=== PATIENT | female | born 1980 | race Caucasian/White ===

== ENCOUNTER 2018-02-12 06:02 | Emergency (ER) | payer OTHER ==
[~2018-02-12] VITALS: Ht 165.1 cm; Wt 122.5 kg
[~2018-02-12 06:02] MED LIST: AUGMENTIN 875875 MG PO; COLACE100 MG PO; HYDROCODON-ACE1 EAC2 PO; IBUPROFEN800 M1 PO; IBUPROFEN800 MG PO; NATURAL IRON65 MG PO; PERCOCET 325 MG1 TA2 PO; PRENATAL1 TA2 PO
--- NOTE | 2018-02-12 06:38 | ED GI/GU/ABDOMINAL COMPLAINT ---
History of Present Illness General Chief Complaint: Abdominal Pain/Flank Pain Stated Complaint: "IM HAVING A GALLBLADDER ATTACK" Source: patient Exam Limitations: no limitations Vital Signs & Intake/Output Vital Signs & Intake/Output Vital Signs Date Time Temp Pulse Resp B/P B/P Pulse O2 O2 Flow FiO2 Mean Ox Delivery Rate 02/12 0834 96.0 42 20 167/75 99 Room Air Room Air 02/12 0623 98 Room Air 02/12 0614 97.6 56 18 187/90 98 Room Air Allergies Coded Allergies: pseudoephedrine (Intermediate, RASH 02/12/18) Reconcile Medications No Known Home Medications Triage Note: TRIAGE: PATIENT TO ER FROM HOME REPORTING "I HAVE GALLSTONES, AT MY DOCTORS ON SATURDAY, SHARP PAIN TODAY APPROX 0300, INCREASED AND CONSTANT SINCE 0500." +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 LAST MENSES FIRST WEEK IN JANUARY PER PATIENT. Triage Nurses Notes Reviewed? yes ? N Is pt currently ? No HPI: Patient presents for evaluation of a severe constant back and upper abdominal pain consistent with a gallbladder attack. Patient states that she was evaluated by Dr. Silva, general surgery, on Saturday was tentatively scheduled for cholecystectomy on March 10. She states that beginning about 11 PM last night she had an onset of a constant sharp back pain. It worsened at about 3 AM and worsened even further at about 5 AM. She took Tylenol initially without relief and then tried a hydrocodone tablet that she had left over from a prior section at about 3:30 AM. She has had no improvement in pain. She denies any associated fever, cold symptoms, diarrhea or dysuria. She has felt nauseous and did vomit once. (January LARSEN,Donovan Montoya) Past History Travel History Traveled to [place] past 21 day No Medical History Any Pertinent Medical History? 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 No (January LARSEN,Donovan Montoya) Review of Systems Review of Systems Constitutional: Reports: no symptoms. EENTM: Reports: no symptoms. Respiratory: Reports: no symptoms. Cardiovascular: Reports: no symptoms. GI: Reports: see HPI. Genitourinary: Reports: no symptoms. Musculoskeletal: Reports: no symptoms. Skin: Reports: no symptoms. Neurological/Psychological: Reports: no symptoms. Hematologic/Endocrine: Reports: no symptoms. Immunologic/Allergic: Reports: no symptoms. All Other Systems: Reviewed and Negative (January LARSEN,Donovan Montoya) Physical Exam Physical Exam Gastrointestinal: SEE BELOW Comments: Gen.: Well-nourished, well-developed, no acute respiratory distress. Uncomfortable but nontoxic-appearing. Head: Normocephalic, atraumatic. Eyes: Normal inspection bilaterally Ears: Normal inspection bilaterally Nose: Normal inspection Throat/mouth : Moist mucosa Neck: Supple, full range of motion, no goiter Heart: Regular rate and rhythm, no murmurs rubs or gallops Lungs: Clear to auscultation bilaterally with normal air entry Chest: Nontender Back: Normal range of motion Abdomen: Soft, right upper quadrant tenderness without rebound or guarding, nondistended, normal bowel sounds Extremities: Normal range of motion grossly, equal radial pulses, no cyanosis clubbing or edema Neurologic: Cranial nerves grossly intact, speech is clear Skin: warm and dry Psychiatric: Calm, cooperative, no apparent delusions or hallucinations Core Measures ACS in differential dx? No Sepsis Present: No Sepsis Focused Exam Completed? No (January LARSEN,Donovan Montoya) Progress Differential Diagnosis: biliary colic, PUD/GERD, CHOLECYSTITIS Plan of Care: Orders Procedure Date/time Status URINALYSIS 02/12 0638 Active LIPASE 02/12 0638 Complete HUMAN BETA HCG SCREEN 02/12 0638 Complete COMPREHENSIVE METABOLIC PANEL 02/12 0638 Complete CBC WITHOUT DIFFERENTIAL 02/12 0638 Complete Current Medications Sig/Jaskaran Start time Last Medication Dose Stop Time Status Admin Ampicillin Sodium/ 3,000 MG ONCE ONE 02/12 0915 AC Sulbactam Sodium 02/12 0944 (Unasyn) Sodium Chloride 100 ML (Normal Saline 0.9%) Sodium Chloride 1,000 ML ONCE ONE 02/12 0645 AC 02/12 (Normal Saline 0.9%) 02/12 1324 0715 Laboratory Tests 02/12/18 0700: Anion Gap 12, Estimated GFR > 60, BUN/Creatinine Ratio 20.0, Glucose 116 H, Calcium 10.0, Total Bilirubin 0.8, AST 14, ALT 34, Alkaline Phosphatase 71, Total Protein 7.2, Albumin 4.0, Globulin 3.2, Albumin/Globulin Ratio 1.3, Lipase 49, Total Beta HCG NEGATIVE, CBC w Diff NO MAN DIFF REQ, RBC 5.08, MCV 87.0, MCH 29.0, MCHC 33.4, RDW 14.4, MPV 9.7, Gran % 77.1 H, Lymphocytes % 16.8 L, Monocytes % 4.6, Eosinophils % 1.1, Basophils % 0.4, Absolute Granulocytes 10.2 H, Absolute Lymphocytes 2.2, Absolute Monocytes 0.6, Absolute Eosinophils 0.1, Absolute Basophils 0.1 Initial ED EKG: none Comments: 02/12/2018 7:42:55 AM 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 (January LARSEN,Donovan Montoya) Departure Departure Disposition: STILL A PATIENT Condition: Stable Clinical Impression Primary Impression: Biliary colic Referrals: Michelle LARSEN,Coral (PCP/Family) Departure Forms: Customer Survey General Discharge Information Prescriptions: Current Visit Scripts No Known Home Medications (January LARSEN,Donovan Montoya) OR/GI Note Spoke With: Nat LARSEN,Pablo Marroquin ED Treatment Decision: FLORA SILVEIRA requires urgent operative management or an emergent procedure that cannot be performed in the Emergency Room setting. Transport To: [facility] (Yair LARSEN,Gonzalez Friedman)
[2018-02-12 07:42] LABS: ABSOLUTE BASOPHIL COUNT 0.1 /CUMM (0.0-0.2); ABSOLUTE EOSINOPHIL COUNT 0.1 /CUMM (0.0-0.7); ABSOLUTE GRANULOCYTE CT 10.2 /CUMM (1.4-6.5); ABSOLUTE LYMPH COUNT 2.2 /CUMM (1.2-3.4); ABSOLUTE MONOCYTE COUNT 0.6 /CUMM (0.10-0.60); BASOPHIL % 0.4 % (0.0-2.0); EOSINOPHIL % 1.1 % (0-5); GRANULOCYTE % 77.1 % (42.2-75.2); HEMATOCRIT 44.2 % (37-47); MEAN CORPUSCULAR HGB CONC 33.4 G/DL (33.0-37.0); MEAN PLATELET VOLUME 9.7 FL (7.4-10.4); PLATELET COUNT 359 /CUMM (130-400); RBC DISTRIBUTION WIDTH 14.4 % (11.5-14.5); RED BLOOD CELL CT 5.08 /CUMM (4.20-5.40); WHITE BLOOD CELL COUNT 13.3 /CUMM (4.8-10.8)
--- NOTE | 2018-02-12 09:02 | ULTRASOUND REPORT ---
US ABDOMEN LIMITED CLINICAL INFORMATION: Cholecystitis. History of gallstones with right upper quadrant abdominal pain. COMPARISON: Abdominal ultrasound 01/27/2018 TECHNIQUE: Real-time imaging of the right upper quadrant abdominal viscera. FINDINGS: PANCREAS: Not visualized LIVER: Normal. The liver demonstrates normal size, contour and echogenicity. No focal lesion or intrahepatic biliary duct dilatation. GALLBLADDER: Gallstones are again noted with an impacted gallstone at the gallbladder neck. Gallbladder wall is thickened, measuring 0.6 cm. No pericholecystic fluid is visualized. The patient is tender within the right upper quadrant. COMMON BILE DUCT: Normal in caliber measuring 0.4 cm in diameter. RIGHT KIDNEY: Normal. No hydronephrosis. No renal calculi or focal parenchymal lesions. The kidney measures 11.1 cm in maximum dimension. FREE FLUID: None. IMPRESSION: Redemonstrated cholelithiasis with similar focal gallbladder wall thickening and focal gallbladder wall edema without definite pericholecystic fluid. A HIDA scan could be obtained if there is high clinical suspicion for acute cholecystitis in this setting.
--- NOTE | 2018-02-12 10:24 | History & Physical Pre-Op ---
General Information and HPI MD Statement: I have seen and personally examined FLORA SILVEIRA and documented this H&P. The patient is a 37 year old F who presented with a patient stated chief complaint of [abdominal pain]. History of Present Illness: Patient presented for evaluation of abdominal pain in my office two days ago. Noted onset of epigastric and RUQ abdominal pain with radiation to back. It began many months ago, shortly after the of her second child. Since then the pain became more frequent, especially in the past few weeks. It was worsened after fatty meals and associate with nausea. Now pain free on low fat diet. Ultrasound shows gallstones with mild wall thickening. I recommended she undergo laparoscopic cholecystectomy. 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 Last night she had severe recurrent attack that brought her to the emergency room. Her pain is unrelenting. 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 She reports no fatigue, no fever, no night sweats, no significant weight gain, no significant weight loss, and no exercise intolerance. She reports no abnormal moles, no jaundice, no hives, no eczema, and no rashes. She reports no dry eyes, no irritation, no vision change, and no discharge. She reports no hearing loss, no ear pain, no sneezing, no frequent nosebleeds, no nose/sinus problems, no bleeding gums, no snoring, no dry mouth, no mouth ulcers, no oral abnormalities, no teeth problems, no headaches, and no sore throat. She reports no swollen glands and no neck stiffness. She reports no cough, no wheezing, no shortness of breath, and no coughing up blood. She reports no chest pain, no arm pain on exertion, no shortness of breath when walking, no shortness of breath when lying down, no palpitations, and no leg swelling. She reports no incontinence, no difficulty urinating, no hematuria, and no increased frequency. She reports no muscle aches, no muscle weakness, no arthralgias/joint pain, and no back pain. Exam & Diagnostic Data Last 24 Hrs of Vital Signs/I&O Vital Signs Date Time Temp Pulse Resp B/P B/P Pulse O2 O2 Flow FiO2 Mean Ox Delivery Rate 02/12 0834 96.0 42 20 167/75 99 Room Air Room Air 02/12 0623 98 Room Air 02/12 0614 97.6 56 18 187/90 98 Room Air Intake & Output 02/12 1600 02/12 0800 02/12 0000 Intake Total Output Total Balance Patient 270 lb Weight Weight Reported by Patient Measurement Method Physical Exam: Patient is a 37-year-old female. Constitutional: General Appearance: healthy-appearing and obese. Level of Distress: no acute distress. Ambulation: ambulating normally. Head: Head: normocephalic and atraumatic. Cardiovascular: Heart Auscultation: normal S1 and S2; no murmurs, rubs, or gallops; and regular rate and rhythm. Lungs: Respiratory effort: no dyspnea. Percussion: no dullness, flatness, or hyperresonance. Auscultation: no wheezing, rales/crackles, or rhonchi and breath sounds normal, good air movement, and clear to auscultation. Back: Thoracolumbar Appearance: normal curvature. Abdomen: Inspection and Palpation: Tender right upper quadrant with guarding. No CVA tenderness and soft and non-distended. Bowel Sounds: normal . Hernia: none palpable. Skin: Inspection and palpation: no rash, lesions, ulcer, induration, nodules, jaundice, or abnormal nevi and good turgor. Musculoskeletal:: Extremities: no cyanosis, edema, varicosities, or palpable cord. Motor Strength and Tone: normal tone and motor strength. Joints, Bones, and Muscles: no contractures, malalignment, tenderness, or bony abnormalities and normal movement of all extremities. Last 24 Hrs of Labs/Perfecto: Laboratory Tests 02/12/18 0700: Anion Gap 12, Estimated GFR > 60, BUN/Creatinine Ratio 20.0, Glucose 116 H, Calcium 10.0, Total Bilirubin 0.8, AST 14, ALT 34, Alkaline Phosphatase 71, Total Protein 7.2, Albumin 4.0, Globulin 3.2, Albumin/Globulin Ratio 1.3, Lipase 49, Total Beta HCG NEGATIVE, CBC w Diff NO MAN DIFF REQ, RBC 5.08, MCV 87.0, MCH 29.0, MCHC 33.4, RDW 14.4, MPV 9.7, Gran % 77.1 H, Lymphocytes % 16.8 L, Monocytes % 4.6, Eosinophils % 1.1, Basophils % 0.4, Absolute Granulocytes 10.2 H, Absolute Lymphocytes 2.2, Absolute Monocytes 0.6, Absolute Eosinophils 0.1, Absolute Basophils 0.1 Diagnostic Data Other Results Ultrasound from 01/27/2018 shows gallstones and wall thickening Assessment/Plan Assessment/Plan: Patient with initial biliary colic now presents with acute cholecystitis. It is clear that observation her symptoms will not work. Plan will be to give her broad-spectrum antibiotics and take her to the OR today for laparoscopic cholecystectomy. She is informed the risk of the operation including bleeding, infection, conversion to open, organ injury, and postcholecystectomy diarrhea. She agrees to proceed As Ranked By This Provider Problem List: 1. Acute cholecystitis
[2018-02-12 13:50] VITALS: BP 158/76
--- NOTE | 2018-02-12 14:09 | Patient Discharge Instructions ---
Discharge Instructions General Discharge Information You were seen/treated for: ACUTE CALCULOUS CHOLECYSTITIS You had these procedures: LAPAROSCOPIC CHOLECYSTECTOMY (02/12/18) Watch for these problems: FEVER>101.3, INCREASED PAIN, REDNESS/SWELLING/DRAINAGE, DIZZINESS, SHORTNESS OF BREATH, CHEST PAINS No bath, but you may shower: Yes Other wound care: OK TO REMOVE BANDAIDS IN 48 HOURS. LEAVE WHITE STERI STRIPS IN PLACE. OK TO SHOWER. KEEP INCISIONS CLEAN & DRY. Diet Continue normal diet: Yes Recommended Diet: Low Fat Activity Full Activity/No Limits: No Activity Self Limited: Yes Pounds, do NOT lift more than: 10 Other activity limits: NO HEAVY LIFTING. NO STRENUOUS ACTIVITY. Acute Coronary Syndrome Inclusion Criteria At DC or during hospital stay patient has or had the following: ACS DIAGNOSIS No Discharge Core Measures Meds if any: Prescribed or Continued at Discharge Meds if any: NOT Prescribed or Continued at Discharge Congestive Heart Failure Inclusion Criteria At DC or during hospital stay patient has or had the following: CHF DIAGNOSIS No Discharge Core Measures Meds if any: Prescribed or Continued at Discharge Meds if any: NOT Prescribed or Continued at Discharge Cerebrovascular accident Inclusion Criteria At DC or during hospital stay patient has or had the following: CVA/TIA Diagnosis No Discharge Core Measures Meds if any: Prescribed or Continued at Discharge Meds if any: NOT Prescribed or Continued at Discharge Venous thromboembolism Inclusion Criteria VTE Diagnosis No VTE Type NONE VTE Confirmed by (Test) NONE Discharge Core Measures - Per Current guidelines, there needs to be overlap - treatment for the first 5 days of Warfarin therapy. - If discharged on Warfarin prior to 5 days of - overlap therapy, the patient will need to be - assessed for post discharge needs including - *Post discharge parental anticoagulation - *Warfarin and/or parental anticoagulation education - *Follow up date to check INR post discharge At least 5 days overlap therapy as Inpatient No Meds if any: Prescribed or Continued at Discharge Note: Overlap Therapy is Warfarin and Anticoagulant Meds if any: NOT Prescribed or Continued at Discharge
[2018-02-12] MEDS ORDERED: VICODIN 5-3001 EACH PO (14:11)
--- NOTE | 2018-02-12 15:14 | Operative Report ---
Operative/Inv Procedure Report Surgery Date: 02/12/18 Name of Procedure: Laparoscopic cholecystectomy Pre-Operative Diagnosis: Acute cholecystitis Post-Operative Diagnosis: Same Estimated Blood Loss: less than 50ml Surgeon/Web Solutions Architect: Crow Silva M.D./Ester FISH Anesthesia: general endotracheal tube Drains: None Specimens: Gallbladder Operative Indication: 37-year-old woman was seen previously in my office for biliary colic. He wanted to postpone surgery until April for work reasons. She now presents 36 hours later with acute cholecystitis for resection urgently. Operative/Procedure Note Note: After informed consent patient is brought to the operating room and laid supine. General anesthesia was obtained and her abdomen was prepped and draped. The skin above the umbilicus infiltrated with local anesthesia and a curvilinear incision made sharply. We came down through the subcutaneous tissues bluntly and grasped the fascia with Mercy's. A fasciotomy was created sharply and stay sutures placed. The peritoneum was entered sharply and a blunt Rawls port was placed. Pneumoperitoneum was achieved. 3, 5 mm ports were placed in the epigastrium and right upper quadrant after local anesthesia was instilled and under direct vision the camera. She's placed in reverse Trendelenburg and rotated towards the left. The gallbladder is identified. It was grasped at the dome and retracted towards the head. Infundibulum was then grasped. Adhesions to the undersurface were taken down with blunt and cautery dissection. The gallbladder was severely edematous with watery inflammatory changes. There was significant hyperemia with oozing from multiple capillaries during the dissection. We dissected both sides the triangle Calot peritoneal tissue with cautery. The artery was medial and its normal anatomic position. It was cauterized medially to allow it to be mobilized away from the duct. [place] was cleared of areolar tissue with cautery. The arteries and duct were ligated with clips. Gallbladder is removed from the fossa electrocautery. The posterior branch was noted laterally and clipped ligated without incident. The gallbladder was placed in Endo Catch bag and cinched up. Right upper quadrant was and suction irrigated normal saline. Hemostasis achieved with cautery. The ports were then removed and the gallbladder delivered and passed off the field. The fascia was closed with 0 Vicryl suture. Skin incisions closed with 4-0 Vicryl. Steri-Strips and sterile dressing applied. Sponge and needle counts are correct. CC: Michelle LARSEN,Coral
== END 2018-02-12 13:50 ==
LOC: ERH 06:02 → ER-OR 06:09 → ERH 06:09 → ER-OR 13:50
PROVIDERS: Emergency Medicine
DX: K80.50 Calculus of bile duct without cholangitis or cholecystitis without obstruction (principal)
CPT/HCPCS: 81001; 96361; 96374; 96375; 96376; J2405